=== PATIENT | female | born 1995 ===

== ENCOUNTER → 2019-06-30 | Outpatient (CLI) | payer OTHER ==
[2019-07-03 01:06] LABS: CHLAMYDIA TRACHOMATIS, NAA Negative (Negative)
[2019-07-03 03:07] LABS: NEISSERIA GONORRHOEAE, NAA Negative (Negative)
== END | disposition home or self-care (01) ==
LOC: LAB 17:52 → LAB SHORT 17:52
PROVIDERS: Family Medicine
DX: Z12.4 Encounter for screening for malignant neoplasm of cervix (principal); Z11.3 Encounter for screening for infections with a predominantly sexual mode of transmission
CPT/HCPCS: 87491; 87591; G0123